=== PATIENT | female | born 1975 ===

== ENCOUNTER 2017-05-31 15:23 | Inpatient (IN) | payer OTHER ==
--- NOTE | 2017-05-31 16:23 | ED PDOC ---
HPI: General Adult Time Seen by Provider: 05/31/17 15:38 Chief Complaint (Nursing): Lower Extremity Problem/Injury Chief Complaint (Provider): cp History Per: Patient (42 y/o female here with chest pain that began 30 min prior to ED arrival associated with sob. Patient states symptoms began when she noted right leg pain/numbness and was concerned for DVT. Has had additional ongoing UTI x few weeks improving intermittently with antibiotics. Patient states she is unsure if chest pain/sob was secondary to anxiety. Notes sob resolved but cp persistent/mild. Is sexually active, but not concerned for STD.) Past Medical History Reviewed: Historical Data, Nursing Documentation, Vital Signs Vital Signs: Last Vital Signs Temp 98.9 F 05/31/17 15:25 Pulse 99 H 05/31/17 15:25 Resp 18 05/31/17 15:25 BP 140/84 05/31/17 15:25 Pulse Ox 100 05/31/17 19:19 - Family History Family History: States: No Known Family Hx - Allergies Allergies/Adverse Reactions: Allergies Allergy/AdvReac Type Severity Reaction Status Date / Time No Known Allergies Allergy Verified 05/31/17 15:25 Review of Systems ROS Statement: Except As Marked, All Systems Reviewed And Found Negative Genitourinary Female: Positive for: Dysuria Musculoskeletal: Positive for: Leg Pain Physical Exam - Reviewed Nursing Documentation Reviewed: Yes Vital Signs Reviewed: Yes - Physical Exam Appears: Positive for: Well, Non-toxic, No Acute Distress Head Exam: Positive for: ATRAUMATIC, NORMAL INSPECTION, NORMOCEPHALIC Skin: Positive for: Normal Color, Warm, DRY Eye Exam: Positive for: EOMI, Normal appearance, PERRL ENT: Positive for: Normal ENT Inspection Neck: Positive for: Normal, Painless ROM Cardiovascular/Chest: Positive for: Regular Rate, Rhythm Respiratory: Positive for: CNT, Normal Breath Sounds Gastrointestinal/Abdominal: Positive for: Normal Exam, Bowel Sounds, Soft Pelvic Exam: Positive for: Discharge (minimal vaginal discharge noted), Tender Adnexa (right adnexal tenderness) Back: Positive for: Normal Inspection Extremity: Positive for: Normal ROM Neurologic/Psych: Positive for: Alert, Oriented - Laboratory Results Result Diagrams: 05/31/17 16:10 05/31/17 16:10 - ECG ECG Rhythm: Positive for: Sinus Rhythm (nsr 67bpm nonspecific t wave abnormality v2/v3) O2 Sat by Pulse Oximetry: 100 ED OBSERVATION Date of observation admission: 05/31/17 Time of observation admission: 16:00 - Observation admission statement Patient is placed on observation because of need: for resolution of acute symptoms - Goals of Observation Goals of Observation: Improvement of pain - Progress Note Time:: 17:00 Observation Progress Note: Patient is awake, vitals are stable, but symptoms persist Progress Note: 05/31/17 19:16 US PELVIC: IMPRESSION: No significant or acute findings to account for/ related to the clinical presentation. Additional benign and/or incidental findings described above. Limitations of the current examination: Nonvisualization left adnexa. 05/31/17 19:17 duplex leg: IMPRESSION: No evidence of deep venous thrombosis in the right lower extremity. CXR: nad 05/31/17 19:18 pyridium 200mg x 1 dose cipro 500mg x 1 dose 18:40 patient re-evaluated . persistent chest pain. Notes increased anxiety and urinary discomfort. EKG at 18:54 Sinus bradycardia t wave inv noted v2-v3 EKG compared with initial EKG. d/w dr. Boyce. 05/31/17 20:24 D/W DR. DOWNS FOR ADMISSION. REQUESTS DR. VALDES FOR POSSIBLE ICU ADMISSION Disposition - Clinical Impression Clinical Impression: UTI (urinary tract infection), Chest pain - Patient ED Disposition Is Patient to be Admitted: Transfer of Care - Disposition Disposition: Transfer of Care Disposition Time: 20:24 Condition: FAIR Patient Signed Over To: Nanda Mack
[2017-05-31 16:24] LABS: BASO # 0.1 K/uL (0.0-0.2); BASO % 0.6 % (0.0-2.0); EOS # 0.1 K/uL (0.0-0.7); EOS % 1.1 % (0.0-4.0); HEMATOCRIT 38.9 % (34.0-47.0); LYMPH # 1.3 K/uL (1.0-4.3); LYMPH % 12.8 % (20.0-40.0); MEAN CELL VOLUME 93.4 fl (81.0-99.0); MEAN CORPUSCULAR HEMOGLOBIN 30.9 pg (27.0-31.0); MEAN CORPUSCULAR HGB CONC 33.1 g/dL (33.0-37.0); MEAN PLATELET VOLUME 8.5 fl (7.2-11.7); MONO # 0.6 K/uL (0.0-0.8); MONO % 5.6 % (0.0-10.0); NEUT # 7.8 K/uL (1.8-7.0); NEUT % 79.9 % (50.0-75.0); RED CELL DISTRIBUTION WIDTH 13.7 % (11.5-14.5); WHITE BLOOD COUNT 9.8 K/uL (4.8-10.8)
[2017-05-31 16:31] LABS: RBC URINE 17 /hpf (0-3); URINE BACTERIA OCC (<OCC); URINE BILIRUBIN NEGATIVE (NEGATIVE); URINE BLOOD MODERATE (NEGATIVE); URINE COLOR AMBER (YELLOW); URINE GLUCOSE (UA) NEG (Normal); URINE KETONE NEGATIVE (NEGATIVE); URINE LEUKOCYTE ESTERASE NEG Leu/uL (Negative); URINE PROTEIN 100 mg/dL (NEGATIVE)
[2017-05-31 16:39] LABS: ALB/GLOB RATIO 1.4 (1.0-2.1); ALKALINE PHOSPHATASE 68 U/L (38-126); ALT/SGPT 29 U/L (9-52); AST/SGOT 25 U/L (14-36); BILIRUBIN,TOTAL 0.3 mg/dl (0.2-1.3); BLOOD UREA NITROGEN 6 mg/dl (7-17); CALCIUM 9.8 mg/dL (8.4-10.2); CARBON DIOXIDE 27 mmol/L (22-30); CHLORIDE 103 mmol/L (98-107); GFR AFRICAN-AMERICAN > 60; GLUCOSE,RANDOM 116 mg/dL (65-105); MAGNESIUM 1.6 MG/DL (1.6-2.3); SODIUM 144 mmol/l (132-148); TOTAL PROTEIN 8.3 G/DL (6.3-8.2); WBC URINE 21 /hpf (0-5)
[2017-05-31 16:53] LABS: POTASSIUM 3.5 MMOL/L (3.6-5.0)
[2017-05-31] MEDS ORDERED: Potassium Chloride 20 mEq ER Tab PO STA (17:59)
[2017-05-31] MEDS ORDERED: Potassium Chloride 20 mEq ER Tab PO ONE ×2 (18:08→18:12)
--- NOTE | 2017-05-31 20:02 | US ---
PROCEDURE: Right lower extremity venous duplex Doppler. HISTORY: r/o dvt COMPARISON: None available. TECHNIQUE: Common femoral, superficial femoral, popliteal and posterior tibial veins were evaluated. Flow was assessed with color Doppler, compressibility, assessment of phasic flow and augmentation response. FINDINGS: COMMON FEMORAL VEIN: Unremarkable. SUPERFICIAL FEMORAL VEIN: Unremarkable. POPLITEAL VEIN: Unremarkable. POSTERIOR TIBIAL VEIN: Unremarkable. OTHER FINDINGS: None. IMPRESSION: No evidence of deep venous thrombosis in the right lower extremity.
--- NOTE | 2017-05-31 20:02 | US ---
HISTORY: Right adnexal pain and tenderness. Relevant medical history: Urinary tract infection. LMP 04/30/2017 COMPARISON: None available. TECHNIQUE: Transvaginal only. Real -time technique with 2D, duplex and color Doppler FINDINGS: UTERUS: Measures 3.5 x 4.6 x 7.1 cm. Normal in size and appearance. Location of fibroid and size: Lower uterine segment less than 1 cm ENDOMETRIUM: Measures 1.8 mm in diameter. No ultrasound findings to suggest gestational sac, fluid, debris, mass or polyp or other pathologic process within the endometrium. CERVIX: No cervical abnormality identified. RIGHT OVARY: Measures 1.2 x 1.1 x 1.9 cm. No solid mass. Normal flow. LEFT OVARY: Not visualized FREE FLUID: No significant free fluid noted. OTHER FINDINGS: None. IMPRESSION: No significant or acute findings to account for/ related to the clinical presentation. Additional benign and/or incidental findings described above. Limitations of the current examination: Nonvisualization left adnexa.
--- NOTE | 2017-05-31 20:02 | RAD ---
HISTORY: Chest pain. Technique: Single view portable semi erect @ 17:04. COMPARISON: No prior. FINDINGS: LUNGS: No active pulmonary disease. PLEURA: No significant pleural effusion identified, no pneumothorax apparent. CARDIOVASCULAR: Normal. OSSEOUS STRUCTURES: No significant abnormalities. VISUALIZED UPPER ABDOMEN: Normal. OTHER FINDINGS: None. IMPRESSION: No active disease. Please note: No preliminary report/ innterpretation of this examination provided by emergency department personnel.
--- NOTE | 2017-05-31 20:51 | ED PDOC ---
- Laboratory Results Result Diagrams: 05/31/17 16:10 05/31/17 16:10 - ECG O2 Sat by Pulse Oximetry: 100 Medical Decision Making Medical Decision Making: Repeat troponin negative. Discussed with Dr. Live and Dr. Russ. Pt placed on Telemetry. Disposition - Clinical Impression Clinical Impression: UTI (urinary tract infection), Chest pain - POA Present On Arrival: None - Disposition Disposition: Hospitalized as Observation Patient Disposition Time: 21:41 Condition: STABLE
--- NOTE | 2017-05-31 21:13 | CP.PCM.CON ---
History of Present Illness - History of Present Illness History of Present Illness: Attending: Ronnie Live MD Reason for Consult: Evaluation for ICU admission Chief [id number]: Chest pain HPI: 42 years old female with hx of Fibromyalgia, Sciatica, Anxiety, who expressed having some domestic problems, came to the Ed with intermittent chest pains that begat rest and radiating up to her left neck and left shoulders, associated with abdominal sensation of wanting to have a bowel movement. no nausea, vomits, diaphoresis, the pain begins and is relieved spontaneously. She also referred pain to the Anterior right thigh radiating to the knee and posterior right thigh pain from the lower back radiating to the foot. 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 absent: Anorexia, Fever, Headache, Lethargy - EENT Eyes: Requires Corrective Lenses. absent: Diplopia, Floaters, Sees Flashes Ears: absent: Decreased Hearing, Ear Discharge, Tinnitus Nose/Mouth/Throat: Epistaxis. absent: Nasal Congestion, Sinus Pain, Sinus Pressure - Cardiovascular Cardiovascular: Chest Pain, Dyspnea. absent: Edema, Leg Edema - Respiratory Respiratory: Dyspnea. absent: Cough, Stridor - Gastrointestinal Gastrointestinal: absent: Abdominal Pain, Constipation, Diarrhea - Genitourinary Genitourinary: Dysuria, Flank Pain. absent: Hematuria - Musculoskeletal Musculoskeletal: Back Pain Additional comments: Pain to the right thigh. - Integumentary Integumentary: absent: Pruritus, Rash, Skin Ulcer, Sores, Striae, Swelling - Neurological Neurological: absent: Confusion, Focal Weakness, Headaches, Tremor - Psychiatric Psychiatric: Anxiety. absent: Depression, Panic Attacks - Endocrine Endocrine: absent: Palpitations, Polydipsia, Polyphagia, Polyuria - Hematologic/Lymphatic Hematologic: absent: Easy Bleeding, Easy Bruising Past Patient History - Past Social History Smoking Status: Light Smoker < 10 Cigarettes Daily Chewing Tobacco Use: No Cigar Use: No Alcohol: None Drugs: Denies Home Situation {Lives}: With Family - CARDIAC Hx Cardiac Disorders: No - NEUROLOGICAL Hx Neurological Disorder: No - HEENT Hx HEENT Problems: No - RENAL Hx Chronic Kidney Disease: No Other/Comment: Recurrent UTI - ENDOCRINE/METABOLIC Hx Endocrine Disorders: No - HEMATOLOGICAL/ONCOLOGICAL Hx Blood Disorders: No - INTEGUMENTARY Hx Dermatological Problems: No - MUSCULOSKELETAL/RHEUMATOLOGICAL Hx Musculoskeletal Disorders: No - GASTROINTESTINAL Hx Gastrointestinal Disorders: No - GENITOURINARY/GYNECOLOGICAL Hx Genitourinary Disorders: No - PSYCHIATRIC Hx Substance Use: No - SURGICAL HISTORY Hx Surgeries: Yes Hx Section: Yes Hx Tubal Ligation: Yes - ANESTHESIA Hx Anesthesia: Yes Hx Anesthesia Reactions: No Meds Allergies/Adverse Reactions: Allergies Allergy/AdvReac Type Severity Reaction Status Date / Time No Known Allergies Allergy Verified 05/31/17 15:25 - Medications Medications: Current Medications Famotidine (Pepcid) 20 mg PO STAT STA Stop: 05/31/17 21:04 Nitroglycerin (Nitrostat Sl Tab) 0.4 mg SL Q5M PRN PRN Reason: Other Physical Exam - Constitutional Appears: No Acute Distress - Head Exam Head Exam: ATRAUMATIC, NORMAL INSPECTION, NORMOCEPHALIC - Eye Exam Eye Exam: EOMI, Normal appearance Pupil Exam: NORMAL ACCOMODATION, PERRL - ENT Exam ENT Exam: Mucous Membranes Moist, Normal Exam, Normal External Ear Exam, Normal Oropharynx - Neck Exam Neck exam: Positive for: Full Rom, Normal Inspection. Negative for: Lymphadenopathy, Tenderness - Respiratory Exam Respiratory Exam: Clear to Auscultation Bilateral. absent: Rales, Rhonchi, Wheezes, Stridor - Cardiovascular Exam Cardiovascular Exam: REGULAR RHYTHM, RRR, +S1, +S2. absent: JVD, Rubs - GI/Abdominal Exam GI & Abdominal Exam: Normal Bowel Sounds, Soft. absent: Mass, Organomegaly, Tenderness - Rectal Exam Rectal Exam: Deferred - Extremities Exam Additional comments: Right thigh painful on palpitation - Back Exam Back exam: NORMAL INSPECTION. absent: CVA tenderness (L), CVA tenderness (R) - Neurological Exam Neurological exam: Alert, CN II-XII Intact, Normal Gait, Oriented x3, Reflexes Normal - Psychiatric Exam Psychiatric exam: Normal Affect, Normal Mood - Skin Skin Exam: Dry, Intact, Normal Color, Warm Results - Vital Signs Recent Vital Signs: Last Vital Signs Temp 98.9 F 05/31/17 15:25 Pulse 99 H 05/31/17 15:25 Resp 18 05/31/17 15:25 BP 140/84 05/31/17 15:25 Pulse Ox 100 05/31/17 21:06 - Labs Result Diagrams: 05/31/17 16:10 05/31/17 16:10 Labs: Laboratory Results - last 24 hr 05/31/17 05/31/17 05/31/17 16:10 16:10 16:10 WBC 9.8 RBC 4.17 Hgb 12.9 Hct 38.9 MCV 93.4 MCH 30.9 MCHC 33.1 RDW 13.7 Plt Count 310 MPV 8.5 Neut % (Auto) 79.9 H Lymph % (Auto) 12.8 L [place] % (Auto) 5.6 Eos % (Auto) 1.1 Baso % (Auto) 0.6 Neut # 7.8 H Lymph # 1.3 [place] # 0.6 Eos # 0.1 Baso # 0.1 D-Dimer, Quantitative Sodium 144 Potassium 3.5 L Chloride 103 Carbon Dioxide 27 Anion Gap 18 BUN 6 L Creatinine 0.6 L Est GFR ( Amer) > 60 Est GFR (Non-Af Amer) > 60 Random Glucose 116 H Calcium 9.8 Magnesium 1.6 Total Bilirubin 0.3 AST 25 ALT 29 Alkaline Phosphatase 68 Troponin I < 0.0120 Total Protein 8.3 H Albumin 4.8 Globulin 3.5 Albumin/Globulin Ratio 1.4 Urine Color [place] Urine Clarity Clear Urine pH 7.0 Ur Specific [place] 1.012 Urine Protein 100 Urine Glucose (UA) Neg Urine Ketones Negative Urine Blood Moderate Urine Nitrate Positive H Urine Bilirubin Negative Urine Urobilinogen 4.0 H Ur Leukocyte Esterase Neg Urine RBC (Auto) 17 H Urine Microscopic WBC 21 H Urine Bacteria Occ H 05/31/17 16:10 WBC RBC Hgb Hct MCV MCH MCHC RDW Plt Count MPV Neut % (Auto) Lymph % (Auto) [place] % (Auto) Eos % (Auto) Baso % (Auto) Neut # Lymph # [place] # Eos # Baso # D-Dimer, Quantitative 135 Sodium Potassium Chloride Carbon Dioxide Anion Gap BUN Creatinine Est GFR ( Amer) Est GFR (Non-Af Amer) Random Glucose Calcium Magnesium Total Bilirubin AST ALT Alkaline Phosphatase Troponin I Total Protein Albumin Globulin Albumin/Globulin Ratio Urine Color Urine Clarity Urine pH Ur Specific [place] Urine Protein Urine Glucose (UA) Urine Ketones Urine Blood Urine Nitrate Urine Bilirubin Urine Urobilinogen Ur Leukocyte Esterase Urine RBC (Auto) Urine Microscopic WBC Urine Bacteria - EKG Data EKG comments: NSR 67/min Biphasic T waves in V1-V4 - Imaging and Cardiology Chest x-ray Status: Image reviewed by me Additional comment: No Active Disease US Right Lower Extremity Additional comment: No DVT of Right lower extremity Trans Vaginal US Additional comment: No significant acute finding Assessment & Plan - Assessment and Plan (Free Text) Plan: 42 years old female with hx of Fibromyalgia, Sciatica, Anxiety, who expressed having some domestic problems, came to the Ed with intermittent chest pains that begat rest and radiating up to her left neck and left shoulders, associated with abdominal sensation of wanting to have a bowel movement. no nausea, vomits, diaphoresis, the pain begins and is relieved spontaneously. #. Chest Pain probably of Esophagitis, vs Fibromyalgia r/o ACS. Two Troponin lwvels were in the normal range. The EKG with the Biphasic T wave could be that of a normal variant or of Hypertrophic cardiomyopathy. There is no evidence of an acute or evolving [place] at this time. I would add to her management SL NTG and Pepcid to cover for esophagitis. i will follow Serial troponin and serial EKG. The patient is not a candidate for the ICU at this time Stiven Russ MD - Date & Time Date: 05/31/17 Time: 21:13
[2017-06-01 07:43] LABS: HEMATOCRIT 35.9 % (34.0-47.0); MEAN CELL VOLUME 92.7 fl (81.0-99.0); MEAN CORPUSCULAR HEMOGLOBIN 31.2 pg (27.0-31.0); MEAN CORPUSCULAR HGB CONC 33.6 g/dL (33.0-37.0); RED CELL DISTRIBUTION WIDTH 13.5 % (11.5-14.5); WHITE BLOOD COUNT 7.7 K/uL (4.8-10.8)
[2017-06-01 08:05] LABS: ALB/GLOB RATIO 1.3 (1.0-2.1); ALKALINE PHOSPHATASE 68 U/L (38-126); ALT/SGPT 29 U/L (9-52); AST/SGOT 23 U/L (14-36); BILIRUBIN,TOTAL 0.5 mg/dl (0.2-1.3); BLOOD UREA NITROGEN 10 mg/dl (7-17); CALCIUM 9.9 mg/dL (8.4-10.2); CARBON DIOXIDE 26 mmol/L (22-30); CHLORIDE 103 mmol/L (98-107); CHOLESTEROL 163 mg/dL (0-199); GFR AFRICAN-AMERICAN > 60; GLUCOSE,RANDOM 96 mg/dL (65-105); SODIUM 144 mmol/l (132-148); TOTAL PROTEIN 7.7 G/DL (6.3-8.2)
[2017-06-01 08:18] LABS: T4 7.74 ug/dl (5.5-11.0)
[2017-06-01 08:32] LABS: THYROID STIMULATING HORMONE 0.47 mIU/ML (0.46-4.68)
--- NOTE | 2017-06-01 10:00 | CP.PCM.CON ---
History of Present Illness - History of Present Illness History of Present Illness: 42 y/o female admitted with SOB and chest pain Sx started while at rest was very anxious and upset at the time pain was dull and aching at left upper shoulder area and neck +/- reproducible with palpation lasted ~30 minutes she thinks it was all brought on by anxiety EKG: normal Troponin: neg Past Patient History - Past Medical History & Family History Past Medical History?: Yes - Past Social History Smoking Status: Light Smoker < 10 Cigarettes Daily Chewing Tobacco Use: No Cigar Use: No Alcohol: None Drugs: Denies Home Situation {Lives}: With Family - CARDIAC Hx Cardiac Disorders: No - PULMONARY Hx Respiratory Disorders: No - NEUROLOGICAL Hx Neurological Disorder: No - HEENT Hx HEENT Problems: No - RENAL Hx Chronic Kidney Disease: No Other/Comment: Recurrent UTI - ENDOCRINE/METABOLIC Hx Endocrine Disorders: No - HEMATOLOGICAL/ONCOLOGICAL Hx Blood Disorders: No - INTEGUMENTARY Hx Dermatological Problems: No - MUSCULOSKELETAL/RHEUMATOLOGICAL Hx Musculoskeletal Disorders: No - GASTROINTESTINAL Hx Gastrointestinal Disorders: No - GENITOURINARY/GYNECOLOGICAL Hx Genitourinary Disorders: No - PSYCHIATRIC Hx Substance Use: No - SURGICAL HISTORY Hx Surgeries: Yes Hx Section: Yes Hx Tubal Ligation: Yes - ANESTHESIA Hx Anesthesia: Yes Hx Anesthesia Reactions: No Meds Allergies/Adverse Reactions: Allergies Allergy/AdvReac Type Severity Reaction Status Date / Time No Known Allergies Allergy Verified 05/31/17 15:25 - Medications Medications: Current Medications Ciprofloxacin (Cipro) 500 mg PO Q12 HILDA PRN Reason: Protocol Last Admin: 06/01/17 09:24 Dose: 500 mg Gabapentin (Neurontin) 300 mg PO BID [facility] Last Admin: 06/01/17 09:24 Dose: 300 mg Nitroglycerin (Nitrostat Sl Tab) 0.4 mg SL Q5M PRN PRN Reason: Other Tramadol HCl (Ultram) 50 mg PO Q6 PRN PRN Reason: Pain, moderate (4-7) Last Admin: 06/01/17 09:22 Dose: 50 mg Zolpidem Tartrate (Ambien) 5 mg PO HS PRN PRN Reason: Insomnia Last Admin: 06/01/17 00:52 Dose: 5 mg Physical Exam - Constitutional Appears: Well - Head Exam Head Exam: NORMAL INSPECTION - Eye Exam Pupil Exam: NORMAL ACCOMODATION - ENT Exam ENT Exam: Normal Exam - Neck Exam Neck exam: Positive for: Normal Inspection - Respiratory Exam Respiratory Exam: NORMAL BREATHING PATTERN - Cardiovascular Exam Cardiovascular Exam: REGULAR RHYTHM - GI/Abdominal Exam GI & Abdominal Exam: Normal Bowel Sounds, Soft. absent: Tenderness - Extremities Exam Extremities exam: Positive for: normal inspection Results - Vital Signs Recent Vital Signs: Last Vital Signs Temp 98.6 F 06/01/17 08:14 Pulse 58 L 06/01/17 08:14 Resp 18 06/01/17 08:14 BP 104/70 06/01/17 08:14 Pulse Ox 98 06/01/17 08:14 - Labs Result Diagrams: 06/01/17 07:00 06/01/17 05:30 Labs: Laboratory Results - last 24 hr 05/31/17 05/31/17 05/31/17 16:10 16:10 16:10 WBC 9.8 RBC 4.17 Hgb 12.9 Hct 38.9 MCV 93.4 MCH 30.9 MCHC 33.1 RDW 13.7 Plt Count 310 MPV 8.5 Neut % (Auto) 79.9 H Lymph % (Auto) 12.8 L [place] % (Auto) 5.6 Eos % (Auto) 1.1 Baso % (Auto) 0.6 Neut # 7.8 H Lymph # 1.3 [place] # 0.6 Eos # 0.1 Baso # 0.1 D-Dimer, Quantitative Sodium 144 Potassium 3.5 L Chloride 103 Carbon Dioxide 27 Anion Gap 18 BUN 6 L Creatinine 0.6 L Est GFR ( Amer) > 60 Est GFR (Non-Af Amer) > 60 Random Glucose 116 H Calcium 9.8 Magnesium 1.6 Total Bilirubin 0.3 AST 25 ALT 29 Alkaline Phosphatase 68 Troponin I < 0.0120 Total Protein 8.3 H Albumin 4.8 Globulin 3.5 Albumin/Globulin Ratio 1.4 Triglycerides Cholesterol LDL Cholesterol Direct HDL Cholesterol Thyroxine (T4) TSH 3rd Generation Urine Color [place] Urine Clarity Clear Urine pH 7.0 Ur Specific [place] 1.012 Urine Protein 100 Urine Glucose (UA) Neg Urine Ketones Negative Urine Blood Moderate Urine Nitrate Positive H Urine Bilirubin Negative Urine Urobilinogen 4.0 H Ur Leukocyte Esterase Neg Urine RBC (Auto) 17 H Urine Microscopic WBC 21 H Urine Bacteria Occ H 05/31/17 05/31/17 06/01/17 16:10 19:31 05:30 WBC RBC Hgb Hct MCV MCH MCHC RDW Plt Count MPV Neut % (Auto) Lymph % (Auto) [place] % (Auto) Eos % (Auto) Baso % (Auto) Neut # Lymph # [place] # Eos # Baso # D-Dimer, Quantitative 135 Sodium 144 Potassium 4.0 Chloride 103 Carbon Dioxide 26 Anion Gap 18 BUN 10 Creatinine 0.6 L Est GFR ( Amer) > 60 Est GFR (Non-Af Amer) > 60 Random Glucose 96 Calcium 9.9 Magnesium Total Bilirubin 0.5 AST 23 ALT 29 Alkaline Phosphatase 68 Troponin I < 0.0120 < 0.0120 Total Protein 7.7 Albumin 4.4 Globulin 3.3 Albumin/Globulin Ratio 1.3 Triglycerides 72 Cholesterol 163 LDL Cholesterol Direct 93 HDL Cholesterol 59 Thyroxine (T4) 7.74 TSH 3rd Generation 0.47 Urine Color Urine Clarity Urine pH Ur Specific [place] Urine Protein Urine Glucose (UA) Urine Ketones Urine Blood Urine Nitrate Urine Bilirubin Urine Urobilinogen Ur Leukocyte Esterase Urine RBC (Auto) Urine Microscopic WBC Urine Bacteria 06/01/17 07:00 WBC 7.7 RBC 3.87 Hgb 12.1 Hct 35.9 MCV 92.7 MCH 31.2 H MCHC 33.6 RDW 13.5 Plt Count 303 MPV Neut % (Auto) Lymph % (Auto) [place] % (Auto) Eos % (Auto) Baso % (Auto) Neut # Lymph # [place] # Eos # Baso # D-Dimer, Quantitative Sodium Potassium Chloride Carbon Dioxide Anion Gap BUN Creatinine Est GFR ( Amer) Est GFR (Non-Af Amer) Random Glucose Calcium Magnesium Total Bilirubin AST ALT Alkaline Phosphatase Troponin I Total Protein Albumin Globulin Albumin/Globulin Ratio Triglycerides Cholesterol LDL Cholesterol Direct HDL Cholesterol Thyroxine (T4) TSH 3rd Generation Urine Color Urine Clarity Urine pH Ur Specific [place] Urine Protein Urine Glucose (UA) Urine Ketones Urine Blood Urine Nitrate Urine Bilirubin Urine Urobilinogen Ur Leukocyte Esterase Urine RBC (Auto) Urine Microscopic WBC Urine Bacteria Assessment & Plan (1) Chest pain Assessment and Plan: Appears to be secondary to anxiety +/- reproducible with palpation EKG: normal Cardiac graff pt may be discharged Status: Acute
[2017-06-01] MEDS ORDERED: HYDROmorphone 1 mg/ml ISec IVP PRN (13:38)
--- NOTE | 2017-06-01 14:41 | CP.PCM.HP ---
History of Present Illness - History of Present Illness History of Present Illness: CC: Chest pain. 42 y/o F, brought to ER [facility], [place] by EMS for evaluation of Chest pain that began 1/2 hour [employer] with no relief. Pt c/o of intermittent L sided chest pain radiated to L neck, L shoulder and associated to SOB, no cough. Worsening symptoms: Pt c/o of Flank pain and dysuria for one week, Dx with UTI for few weeks improving intermittently with abx, also pain radiated to R leg , R thigh, they are intermittent, sharp, severe intensity 7:10 radiated to R foot. Hx of Childhood Asthma. Other worsening symptom: Anxiety. Pt denied: Fever, chills, n/v/d, abdominal pain, cough, syncope, numbness, dizziness, injury, sick contact, recent travel. Present on Admission - Present on Admission Any Indicators Present on Admission: No Review of Systems - Constitutional Constitutional: Other (negative) - EENT Eyes: Requires Corrective Lenses Ears: Other (negative) Nose/Mouth/Throat: Other (negative) - Cardiovascular Cardiovascular: Chest Pain - Respiratory Respiratory: Dyspnea - Gastrointestinal Gastrointestinal: Other (negative) - Genitourinary Genitourinary: Dysuria, Freq UTI - Musculoskeletal Musculoskeletal: Back Pain, Neck Pain (and shoulder pain), Radiating Pain into Limb - Integumentary Integumentary: Other (negative) - Neurological Neurological: Radicular Pain, Other (negative) - Psychiatric Psychiatric: Anxiety - Endocrine Endocrine: Other (negative) - Hematologic/Lymphatic Hematologic: Other (negative) Past Patient History - Past Medical History & Family History Past Medical History?: Yes Pertinent Family History: Father and Grandfather Hx. Heart attack. - Past Social History Smoking Status: Light Smoker < 10 Cigarettes Daily Chewing Tobacco Use: No Cigar Use: No Alcohol: None Drugs: Denies Home Situation {Lives}: With Family - CARDIAC Hx Cardiac Disorders: No - PULMONARY Hx Respiratory Disorders: No - NEUROLOGICAL Hx Neurological Disorder: No - HEENT Hx HEENT Problems: No - RENAL Hx Chronic Kidney Disease: No Other/Comment: Recurrent UTI - ENDOCRINE/METABOLIC Hx Endocrine Disorders: No - HEMATOLOGICAL/ONCOLOGICAL Hx Blood Disorders: No - INTEGUMENTARY Hx Dermatological Problems: No - MUSCULOSKELETAL/RHEUMATOLOGICAL Hx Musculoskeletal Disorders: No - GASTROINTESTINAL Hx Gastrointestinal Disorders: No - GENITOURINARY/GYNECOLOGICAL Hx Genitourinary Disorders: No - PSYCHIATRIC Hx Psychophysiologic Disorder: No Hx Substance Use: No - SURGICAL HISTORY Hx Surgeries: Yes Hx Section: Yes Hx Tubal Ligation: Yes - ANESTHESIA Hx Anesthesia: Yes Hx Anesthesia Reactions: No Meds Allergies/Adverse Reactions: Allergies Allergy/AdvReac Type Severity Reaction Status Date / Time No Known Allergies Allergy Verified 05/31/17 15:25 Physical Exam - Constitutional Appears: No Acute Distress - Head Exam Head Exam: NORMAL INSPECTION - Eye Exam Eye Exam: PERRL - ENT Exam ENT Exam: Normal Exam - Neck Exam Neck exam: Positive for: Normal Inspection - Respiratory Exam Respiratory Exam: NORMAL BREATHING PATTERN - Cardiovascular Exam Cardiovascular Exam: REGULAR RHYTHM - GI/Abdominal Exam GI & Abdominal Exam: Normal Bowel Sounds, Soft - Extremities Exam Additional comments: R thigh tenderness palpation. - Back Exam Back exam: tenderness Additional comments: R Lumbo -Sacral - Neurological Exam Neurological exam: Alert, Oriented x3 Additional comments: Pt walks with R leg limping 2nd to L-S pain radiated to RLE. - Psychiatric Exam Psychiatric exam: Anxious - Skin Skin Exam: Warm Results - Vital Signs Recent Vital Signs: Last Vital Signs Temp 98.7 F 06/01/17 12:20 Pulse 76 06/01/17 12:20 Resp 18 06/01/17 12:20 BP 103/67 06/01/17 12:20 Pulse Ox 99 06/01/17 12:20 reviewed Haley - Labs Result Diagrams: 06/01/17 07:00 06/01/17 05:30 Labs: Laboratory Results - last 24 hr 05/31/17 05/31/17 05/31/17 16:10 16:10 16:10 WBC 9.8 RBC 4.17 Hgb 12.9 Hct 38.9 MCV 93.4 MCH 30.9 MCHC 33.1 RDW 13.7 Plt Count 310 MPV 8.5 Neut % (Auto) 79.9 H Lymph % (Auto) 12.8 L [place] % (Auto) 5.6 Eos % (Auto) 1.1 Baso % (Auto) 0.6 Neut # 7.8 H Lymph # 1.3 [place] # 0.6 Eos # 0.1 Baso # 0.1 D-Dimer, Quantitative Sodium 144 Potassium 3.5 L Chloride 103 Carbon Dioxide 27 Anion Gap 18 BUN 6 L Creatinine 0.6 L Est GFR ( Amer) > 60 Est GFR (Non-Af Amer) > 60 Random Glucose 116 H Calcium 9.8 Magnesium 1.6 Total Bilirubin 0.3 AST 25 ALT 29 Alkaline Phosphatase 68 Troponin I < 0.0120 Total Protein 8.3 H Albumin 4.8 Globulin 3.5 Albumin/Globulin Ratio 1.4 Triglycerides Cholesterol LDL Cholesterol Direct HDL Cholesterol Thyroxine (T4) TSH 3rd Generation Urine Color [place] Urine Clarity Clear Urine pH 7.0 Ur Specific [place] 1.012 Urine Protein 100 Urine Glucose (UA) Neg Urine Ketones Negative Urine Blood Moderate Urine Nitrate Positive H Urine Bilirubin Negative Urine Urobilinogen 4.0 H Ur Leukocyte Esterase Neg Urine RBC (Auto) 17 H Urine Microscopic WBC 21 H Urine Bacteria Occ H 05/31/17 05/31/17 06/01/17 16:10 19:31 05:30 WBC RBC Hgb Hct MCV MCH MCHC RDW Plt Count MPV Neut % (Auto) Lymph % (Auto) [place] % (Auto) Eos % (Auto) Baso % (Auto) Neut # Lymph # [place] # Eos # Baso # D-Dimer, Quantitative 135 Sodium 144 Potassium 4.0 Chloride 103 Carbon Dioxide 26 Anion Gap 18 BUN 10 Creatinine 0.6 L Est GFR ( Amer) > 60 Est GFR (Non-Af Amer) > 60 Random Glucose 96 Calcium 9.9 Magnesium Total Bilirubin 0.5 AST 23 ALT 29 Alkaline Phosphatase 68 Troponin I < 0.0120 < 0.0120 Total Protein 7.7 Albumin 4.4 Globulin 3.3 Albumin/Globulin Ratio 1.3 Triglycerides 72 Cholesterol 163 LDL Cholesterol Direct 93 HDL Cholesterol 59 Thyroxine (T4) 7.74 TSH 3rd Generation 0.47 Urine Color Urine Clarity Urine pH Ur Specific [place] Urine Protein Urine Glucose (UA) Urine Ketones Urine Blood Urine Nitrate Urine Bilirubin Urine Urobilinogen Ur Leukocyte Esterase Urine RBC (Auto) Urine Microscopic WBC Urine Bacteria 06/01/17 07:00 WBC 7.7 RBC 3.87 Hgb 12.1 Hct 35.9 MCV 92.7 MCH 31.2 H MCHC 33.6 RDW 13.5 Plt Count 303 MPV Neut % (Auto) Lymph % (Auto) [place] % (Auto) Eos % (Auto) Baso % (Auto) Neut # Lymph # [place] # Eos # Baso # D-Dimer, Quantitative Sodium Potassium Chloride Carbon Dioxide Anion Gap BUN Creatinine Est GFR ( Amer) Est GFR (Non-Af Amer) Random Glucose Calcium Magnesium Total Bilirubin AST ALT Alkaline Phosphatase Troponin I Total Protein Albumin Globulin Albumin/Globulin Ratio Triglycerides Cholesterol LDL Cholesterol Direct HDL Cholesterol Thyroxine (T4) TSH 3rd Generation Urine Color Urine Clarity Urine pH Ur Specific [place] Urine Protein Urine Glucose (UA) Urine Ketones Urine Blood Urine Nitrate Urine Bilirubin Urine Urobilinogen Ur Leukocyte Esterase Urine RBC (Auto) Urine Microscopic WBC Urine Bacteria reviewed J.P. - Imaging and Cardiology Chest x-ray Status: Report reviewed by me (Haley) Trans Vaginal US Status: Report reviewed by me (Haley) Venous US Status: Report reviewed by me (Haley) Assessment & Plan (1) Chest pain, non-cardiac Status: Acute Priority: High (2) UTI (urinary tract infection) Status: Acute Priority: High (3) Acute pain of right lower extremity Status: Acute Priority: High (4) Lumbosacral pain Status: Acute Priority: High (5) Anxiety Status: Acute Priority: High - Assessment and Plan (Free Text) Plan: F/U U C-S, continue Cipro, Neurontin, Tramadol and rest of Tx. Cardiac consult appreciated. - Date & Time Date: 06/01/17 Time: 12:30
--- NOTE | 2017-06-01 23:10 | CARD ---
APPROVED REPORT EKG Measurement Heart [id number] <Conclusion> Sinus bradycardia Otherwise normal ECG
--- NOTE | 2017-06-01 23:14 | CARD ---
APPROVED REPORT EKG Measurement Heart [id number] <Conclusion> Normal sinus rhythm Normal ECG
[2017-06-02 00:28] VITALS: O2SAT 99
[2017-06-02 08:46] VITALS: BP 98/67; PULSE 60; RESP 18; TEMP 98.4
[2017-06-02] MEDS ORDERED: Ciprofloxacin 400mg/200ml D5W 400 MG/200 ML BAG IVPB SCH (09:00)
--- NOTE | 2017-06-02 12:54 | CP.PCM.PN ---
Subjective - Date & Time of Evaluation Date of Evaluation: 06/02/17 Time of Evaluation: 12:00 - Subjective Subjective: F/U CP. No chest pain, R L-S pain radiated to lower extremity improved. Objective - Vital Signs/Intake and Output Vital Signs (last 24 hours): Temp Pulse Resp BP Pulse Ox 98.4 F 60 18 98/67 L 99 06/02/17 08:45 06/02/17 08:45 06/02/17 08:45 06/02/17 08:45 06/02/17 08:45 - Medications Medications: Current Medications Ciprofloxacin (Cipro) 500 mg PO Q12 HILDA PRN Reason: Protocol Last Admin: 06/02/17 09:29 Dose: 500 mg Gabapentin (Neurontin) 300 mg PO TID [facility] Last Admin: 06/02/17 09:28 Dose: 300 mg Hydromorphone HCl (Dilaudid) 1 mg IVP Q4 PRN PRN Reason: Pain, severe (8-10) Last Admin: 06/02/17 02:09 Dose: 1 mg Ciprofloxacin (Cipro 400mg/200ml Dsw) 400 mg in 200 mls @ 200 mls/hr IVPB Q12 HILDA Last Admin: 06/02/17 09:30 Dose: Not Given Nitroglycerin (Nitrostat Sl Tab) 0.4 mg SL Q5M PRN PRN Reason: Other Tramadol HCl (Ultram) 50 mg PO Q6 PRN PRN Reason: Pain, moderate (4-7) Last Admin: 06/02/17 11:28 Dose: 50 mg Zolpidem Tartrate (Ambien) 5 mg PO HS PRN PRN Reason: Insomnia Last Admin: 06/01/17 20:40 Dose: 5 mg - Labs Labs: 06/01/17 07:00 06/01/17 05:30 - Constitutional Appears: No Acute Distress - Head Exam Head Exam: NORMAL INSPECTION - Eye Exam Eye Exam: PERRL - ENT Exam ENT Exam: Normal Exam - Neck Exam Neck Exam: Normal Inspection - Respiratory Exam Respiratory Exam: NORMAL BREATHING PATTERN - Cardiovascular Exam Cardiovascular Exam: REGULAR RHYTHM - GI/Abdominal Exam GI & Abdominal Exam: Soft, Normal Bowel Sounds - Extremities Exam Extremities Exam: Tenderness (R thigh decreased on palpation.) - Back Exam Back Exam: tenderness (Right L-S decreased ) - Neurological Exam Neurological Exam: Alert, Oriented x3 Additional comments: R leg limping when walks 2nd to radiated pain to LLE - Psychiatric Exam Psychiatric exam: Anxious - Skin Skin Exam: Warm Assessment and Plan (1) Chest pain, non-cardiac Status: Acute (2) UTI (urinary tract infection) Status: Acute (3) Acute pain of right lower extremity Status: Acute (4) Lumbosacral pain Status: Acute (5) Anxiety Status: Acute - Assessment and Plan (Free Text) Plan: Pt improved and stable to be discharged f/u MRI as out Pt, continue Gabapentin 300 mg po tid, Tramadol 50 mg po 2 q 8 hrs prn pain, Cipro 500 po bid, f/u PMD in a week.
--- NOTE | 2017-06-02 12:57 | RAD ---
PROCEDURE: Radiographs of the Lumbar Spine. HISTORY: Sciatic pain COMPARISON: None available. FINDINGS: BONES: Alignment appears satisfactory. No listhesis. No acute displaced fracture identified. DISC SPACES: Unremarkable. OTHER FINDINGS: None. IMPRESSION: No acute displaced fracture or subluxation identified.
--- NOTE | 2017-06-02 13:04 | CP.PCM.PN ---
Objective - Vital Signs/Intake and Output Vital Signs (last 24 hours): Temp Pulse Resp BP Pulse Ox 98.4 F 60 18 98/67 L 99 06/02/17 08:45 06/02/17 08:45 06/02/17 08:45 06/02/17 08:45 06/02/17 08:45 - Medications Medications: Current Medications Ciprofloxacin (Cipro) 500 mg PO Q12 HILDA PRN Reason: Protocol Last Admin: 06/02/17 09:29 Dose: 500 mg Gabapentin (Neurontin) 300 mg PO TID [facility] Last Admin: 06/02/17 09:28 Dose: 300 mg Hydromorphone HCl (Dilaudid) 1 mg IVP Q4 PRN PRN Reason: Pain, severe (8-10) Last Admin: 06/02/17 02:09 Dose: 1 mg Ciprofloxacin (Cipro 400mg/200ml Dsw) 400 mg in 200 mls @ 200 mls/hr IVPB Q12 [facility] Last Admin: 06/02/17 09:30 Dose: Not Given Nitroglycerin (Nitrostat Sl Tab) 0.4 mg SL Q5M PRN PRN Reason: Other Tramadol HCl (Ultram) 50 mg PO Q6 PRN PRN Reason: Pain, moderate (4-7) Last Admin: 06/02/17 11:28 Dose: 50 mg Zolpidem Tartrate (Ambien) 5 mg PO HS PRN PRN Reason: Insomnia Last Admin: 06/01/17 20:40 Dose: 5 mg - Labs Labs: 06/01/17 07:00 06/01/17 05:30 Assessment and Plan (1) Chest pain, non-cardiac Status: Acute (2) UTI (urinary tract infection) Status: Acute (3) Acute pain of right lower extremity Status: Acute (4) Lumbosacral pain Status: Acute (5) Anxiety Status: Acute
== END 2017-06-02 13:30 | disposition home or self-care (01) | DRG 690 ==
LOC: H.ER 15:23 → H.EROBSV 16:00 → H.ERHOLD 22:01 → H.TEL 23:19 → H.MEDSURG1 06-01 17:00 → OBSVTOIN 06-01 21:45
PROVIDERS: ADMIT Internal Medicine Pulmonary Disease; ATTEND Internal Medicine Pulmonary Disease
DX: N39.0 Urinary tract infection, site not specified (principal); K20.9 Esophagitis, unspecified; R00.1 Bradycardia, unspecified; R07.89 Other chest pain; F41.9 Anxiety disorder, unspecified; J45.909 Unspecified asthma, uncomplicated; M79.7 Fibromyalgia; M54.30 Sciatica, unspecified side; Z87.440 Personal history of urinary (tract) infections; Z87.891 Personal history of nicotine dependence; Z98.51 Tubal ligation status; M54.5 Low back pain; M79.651 Pain in right thigh

== ENCOUNTER 2018-04-03 12:55 | Emergency (ER) | payer SELFPAY ==
[2018-04-03 13:05] VITALS: O2SAT 99
[2018-04-03] MEDS ORDERED: Sodium Chloride 0.9% 1,000 ML IV SCH (13:15)
[2018-04-03 13:38] VITALS: RESP 16
[2018-04-03 13:42] LABS: BASO # 0.1 K/uL (0.0-0.2); BASO % 0.8 % (0.0-2.0); EOS % 0.2 % (0.0-4.0); HEMOGLOBIN 12.1 g/dL (12.0-16.0); LYMPH # 0.9 K/uL (1.0-4.3); LYMPH % 12.1 % (20.0-40.0); MEAN CELL VOLUME 90.8 fl (81.0-99.0); MEAN CORPUSCULAR HGB CONC 34.1 g/dL (33.0-37.0); MEAN PLATELET VOLUME 8.5 fl (7.2-11.7); MONO # 0.5 K/uL (0.0-0.8); MONO % 6.7 % (0.0-10.0); NEUT # 5.7 K/uL (1.8-7.0); NEUT % 80.2 % (50.0-75.0); RBC 3.89 Mil/uL (3.80-5.20); RED CELL DISTRIBUTION WIDTH 14.2 % (11.5-14.5); WHITE BLOOD COUNT 7.1 K/uL (4.8-10.8)
--- NOTE | 2018-04-03 13:42 | CT ---
Date of service: 04/03/2018 PROCEDURE: CT HEAD WITHOUT CONTRAST. HISTORY: code stroke COMPARISON: None available. TECHNIQUE: Axial computed tomography images were obtained through the head/brain without intravenous contrast. Radiation dose: Total exam DLP = 946.72 mGy-cm. This CT exam was performed using one or more of the following dose reduction techniques: Automated exposure control, adjustment of the mA and/or kV according to patient size, and/or use of iterative reconstruction technique. FINDINGS: HEMORRHAGE: No intracranial hemorrhage. BRAIN: Motion artifacts degrade skullbase segments of this examination with added series performed to attempt to overcome this issue. Overall parenchymal pattern appears grossly nonfocal with no prominent intracranial hemorrhage mass effect or hydrocephalus identified. There is no suspicious extra-axial fluid collection evident with posterior fossa appear unremarkable including the brainstem. VENTRICLES: Unremarkable. No hydrocephalus. CALVARIUM: Unremarkable. PARANASAL SINUSES: Unremarkable as visualized. No significant inflammatory changes. MASTOID AIR CELLS: Unremarkable as visualized. No inflammatory changes. OTHER FINDINGS: None. IMPRESSION: Limited but unremarkable appearing noncontrast head CT. No acute findings to suggest brain infarction at this time. Consider follow-up CT when feasible. Findings discussed with Dr. Azveedo with written down read back verification 04/03/2018 1:28 p.m..
[2018-04-03 13:44] LABS: PROTHROMBIN TIME 11.6 Seconds (9.8-13.1)
[2018-04-03 13:59] LABS: ALB/GLOB RATIO 1.4 (1.0-2.1); ALBUMIN 5.2 g/dL (3.5-5.0); ALT/SGPT 23 U/L (9-52); AST/SGOT 23 U/L (14-36); BLOOD UREA NITROGEN 7 mg/dl (7-17); CALCIUM 10.3 mg/dL (8.4-10.2); GFR AFRICAN-AMERICAN > 60; GFR NON-AFRICAN AMERICAN > 60; HDL CHOLESTEROL 82 MG/DL (30-70)
[2018-04-03 14:11] LABS: LDL CHOLESTEROL 81 mg/dL (0-129)
--- NOTE | 2018-04-03 14:11 | ED PDOC ---
- Laboratory Results Result Diagrams: 04/03/18 13:29 04/03/18 13:29 - ECG O2 Sat by Pulse Oximetry: 99 (Normal) Pulse Ox Interpretation: Normal Disposition - Disposition
--- NOTE | 2018-04-03 14:18 | ED PDOC ---
HPI:STROKE - Time Time: 13:10 - Historian Historian: Patient - Chief Complaint Chief Complaint: Numbness (right side of face) - Onset Date: 04/03/18 Onset: Today (40 minutes prior to arrival) - Location Locate right:: Face - Notes: Notes:: Wendy Sandoval is a 42 year old female, with a past medical history of asthma, chronic pain and fibromyalgia, who presents to the emergency department with right facial numbness onset 40 minutes prior to arrival. She reports intermittent chest pain over the past few months and states she is under a lot of stress. Patient was seen at yesterday for left sided chest pain and was diagnosed with anxiety. No further medical complaints. PMD: None provided. NIHSS Stroke Scale - Date/Time Evaluation Performed Date Performed: 04/03/18 When Was NIHSS Performed: Baseline - How Severe is the Stroke Level of Consciousness: 0=Alert LOC to Questions: 0=Both comments correct LOC to commands: 0=Obeys both correctly Visual: 0=No visual loss Facial: 0=Normal Motor Arm - Left: 0=No drift Motor Arm - Right: 0=No drift Motor Leg - Left: 0=No drift Motor Leg - Right: 0=No drift Limb Ataxia: 0=Absent Sensory: 0=Normal Best Language: 0=No aphasia Dysarthia: 0=Normal articulation Extinction & Inattention (Neglect): 0=Normal, no object Severity Of Stroke: 0 = No Stroke rTPA Inclusion/Exclusion - Refusal of Treatment Patient Refused Treatment: No - Inclusion Criteria for Altepase Patient is 18 years or Older: Yes The Clinical Diagnosis of Ischemic Stroke That is Causing a Potentially Disabling Neurological Deficit: No Time of Onset is Well Established to be Less Than 270 Minute Before Treatment Would Begin: No Risk/Benefit Discussed With Patient/Family Member Present: No - Exclusion Criteria for Altepase Uncontrolled Hypertension at Time of Treatment (Systolic BP above 185 or Diastolic BP above 110 mmHg): No Active Internal Bleeding: No Known Bleeding Diathesis Including but Not Limited to: Platelets Below 100,000/ mm,PTT Above 40 sec After Heparin Use, Current Use of Oral Anitcoagulant With INR Greater Than 1.7 or PT Greater Than 15 secs: No Evidence of an Intracranial Hemorrhage: No Evidence of Major Acute Infarct With Signs Greater Than 1/3 MCA Territory: No Suspicion of Subarachnoid Hemorrhage on Pretreatment Evaluation Even if CT Head Negative For Hemorrhage: No - Warning to TPA With Conditions Following Conditions Weighed Against Anticipated Benefit: No Past Medical History Reviewed: Historical Data, Nursing Documentation, Vital Signs Vital Signs: Last Vital Signs Temp 98.2 F 04/03/18 13:04 Pulse 75 04/03/18 13:37 Resp 16 04/03/18 13:37 BP 115/80 04/03/18 13:37 Pulse Ox 99 04/03/18 13:37 - Medical History PMH: Asthma, Fibromyalgia, Chronic Pain Denies: Chronic Kidney Disease - Surgical History Other surgeries: gynecological surgeries - Family History Family History: States: Unknown Family Hx - Social History Current smoker - smoking cessation education provided: Yes (1/2 pack per day) Drugs: Denies - Immunization History Hx Tetanus Toxoid Vaccination: No Hx Influenza Vaccination: No Hx Pneumococcal Vaccination: No - Home Medications Home Medications: Ambulatory Orders Medication Instructions Recorded Gabapentin [Neurontin] 300 mg PO BID 05/31/17 traMADol [Ultram] 50 mg PO Q6 PRN 05/31/17 Naproxen 375 mg PO Q8 #14 tablet 03/11/18 Pantoprazole Sodium [Protonix] 40 mg PO DAILY #14 ect 03/11/18 - Allergies Allergies/Adverse Reactions: Allergies Allergy/AdvReac Type Severity Reaction Status Date / Time No Known Allergies Allergy Verified 04/03/18 13:03 Review of Systems ROS Statement: Except As Marked, All Systems Reviewed And Found Negative Cardiovascular: Positive for: Chest Pain Neurological: Positive for: Numbness (right sided facial) Physical Exam - Reviewed Nursing Documentation Reviewed: Yes Vital Signs Reviewed: Yes - Physical Exam Appears: Positive for: Well, Non-toxic Head Exam: Positive for: ATRAUMATIC, NORMAL INSPECTION, NORMOCEPHALIC Skin: Positive for: Normal Color, Warm, Dry Eye Exam: Positive for: EOMI, Normal appearance, PERRL ENT: Positive for: Normal ENT Inspection Neck: Positive for: Normal, Painless ROM Cardiovascular/Chest: Positive for: Regular Rate, Rhythm Respiratory: Positive for: Normal Breath Sounds. Negative for: Respiratory Distress Gastrointestinal/Abdominal: Positive for: Normal Exam, Soft. Negative for: Tenderness Back: Positive for: Normal Inspection Extremity: Positive for: Normal ROM (upper and lower). 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 Negative for: Motor/Sensory Deficits - Laboratory Results Result Diagrams: 04/03/18 13:29 04/03/18 13:29 - ECG O2 Sat by Pulse Oximetry: 99 (RA) Pulse Ox Interpretation: Normal Medical Decision Making Medical Decision Making: Initial Impression: Facial numbness rule out stroke, electrolyte abnormality Initial Plan: --Type and screen --Head w/o (code stroke) [CT] --EKG --CMP --Hemoglobin AIC --Lipid Panel --Troponin I --CBC w/ differential --PTT --PT --Chest portable [RAD] --Reevaluation 13:12 -Code stroke called. 13:25 -Discussed case with Dr. Palmer who states its just anxiety. 13:[address] FINDINGS: HEMORRHAGE: No intracranial hemorrhage. BRAIN: Motion artifacts degrade skullbase segments of this examination with added series performed to attempt to overcome this issue. Overall parenchymal pattern appears grossly nonfocal with no prominent intracranial hemorrhage mass effect or hydrocephalus identified. There is no suspicious extra-axial fluid collection evident with posterior fossa appear unremarkable including the brainstem. VENTRICLES: Unremarkable. No hydrocephalus. CALVARIUM: Unremarkable. PARANASAL SINUSES: Unremarkable as visualized. No significant inflammatory changes. MASTOID AIR CELLS: Unremarkable as visualized. No inflammatory changes. OTHER FINDINGS: None. IMPRESSION: Limited but unremarkable appearing noncontrast head CT. No acute findings to suggest brain infarction at this time. Consider follow-up CT when feasible. 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 not need to admit to hospital. pt can follow up as outpt. Time: 1508 --Labs: potassium is borderline..repleted. --Ativan additionally ordered as patient reports feeling anxious. Crisis evaluation ordered for anxiety. 1600 pt reevaluated. feels better, numbness resolved. ambulating with steady gait. Time: 1757 --Patient is medically cleared for discharge s/p crisis evaluation, as per Dr. Esqueda. Patient will be discharged home and advised to follow up with Dr. Palmer. Counseling was provided and all questions were answered regarding diagnosis. There is agreement to discharge plan. Return if symptoms persist or worsen. Clinical Impression: Anxiety attack pt given outpt follow up. ----- Scribe Attestation: Documented by Calvin Moore & Shelby Garcia, acting as a scribe for Dara Azevedo MD. Provider Scribe Attestation: All medical record entries made by the Scribe were at my direction and personally dictated by me. I have reviewed the chart and agree that the record accurately reflects my personal performance of the history, physical exam, medical decision making, and the department course for this patient. I have also personally directed, reviewed, and agree with the discharge instructions and disposition. Disposition - Clinical Impression Clinical Impression: Anxiety attack - Patient ED Disposition Is Patient to be Admitted: No Counseled Patient/Family Regarding: Studies Performed, Diagnosis, Need For Followup - Disposition Referrals: Denise Palmer MD [Medical Doctor] - Disposition: Routine/Home Disposition Time: 17:57 Condition: IMPROVED Additional Instructions: follow up with Dr Palmer in 2 days for reevaluation follow up with outpatient mental health as instructed Instructions: Anxiety, Adult (DC) Forms: [place] (Swedish)
--- NOTE | 2018-04-03 15:23 | RAD ---
Date of service: 04/03/2018 HISTORY: Code Stroke COMPARISON: 06/10/2017. FINDINGS: LUNGS: No active pulmonary disease. PLEURA: No significant pleural effusion identified, no pneumothorax apparent. CARDIOVASCULAR: Normal. OSSEOUS STRUCTURES: No significant abnormalities. VISUALIZED UPPER ABDOMEN: Normal. OTHER FINDINGS: None. IMPRESSION: No active disease. No significant interval change compared to the prior examination(s).
[2018-04-03] MEDS ORDERED: Potassium Chloride 20 mEq ER Tab PO ONE ×2 (15:49→15:56)
[2018-04-03 17:57] VITALS: BP 115/80; PULSE 75; TEMP 98.1
--- NOTE | 2018-04-03 22:31 | CARD ---
APPROVED REPORT Date of service: 04/03/2018 <Conclusion> Normal sinus rhythm with sinus arrhythmia Normal ECG
== END 2018-04-03 18:20 | disposition home or self-care (01) ==
LOC: H.ER 12:55
DX: F41.0 Panic disorder [episodic paroxysmal anxiety] (principal); G89.29 Other chronic pain; M79.7 Fibromyalgia; R20.2 Paresthesia of skin
CPT/HCPCS: 70450; 71045; 80053; 80061; 81025; 82948; 83036; 84484; 85025; 85610; 85730; 86850; 86900; 93005; 96374; 99285; J2060; J7030